=== PATIENT | male | born 1990 | race Caucasian/White ===

== ENCOUNTER 2020-12-25 10:06 | Outpatient (REF) | payer SELFPAY ==
[2020-12-25 14:34] LABS: HDL Cholesterol 39 mg/dL (40-60)
== END 2020-12-25 10:07 | disposition home or self-care (01) ==
LOC: NCHCN 10:06
PROVIDERS: PCP Nurse Practitioner Family; Visit Provider Family Medicine
DX: Z82.49 Family history of ischemic heart disease and other diseases of the circulatory system (principal)
CPT/HCPCS: 83718

== ENCOUNTER 2020-12-29 09:24 | Outpatient (REF) | payer SELFPAY ==
[2020-12-29 15:09] LABS: Calculated LDL 182 mg/dL (<100); Cholesterol 250 mg/dL (<200); HDL Cholesterol 40 mg/dL (40-60); Triglyceride 143 mg/dL (<150)
== END 2020-12-29 09:25 | disposition home or self-care (01) ==
LOC: NCHCN 09:24
PROVIDERS: PCP Nurse Practitioner Family; Visit Provider Family Medicine
DX: Z00.00 Encounter for general adult medical examination without abnormal findings (principal)
CPT/HCPCS: 80061

== ENCOUNTER 2024-03-11 06:52 | Emergency (ER) | payer BC, SELFPAY ==
[2024-03-11] VITALS (22 sets, daily range): BP systolic 119–147; BP diastolic 76–104; PULSE 51–74; RESP 9–23; TEMP 36.3; O2SAT 96–100
--- NOTE | 2024-03-11 06:45 | RT.EKG_ITS ---
APPROVED REPORT Exam: Resting ECG Reason for Exam: Chest pain Patient Location: E HR:61 bpm ECG Measurements Heart Rate 61 AXIS NM 193 P 24 QRSd 102 QRS 33 QT 433 T 7 QTc 437 Conclusion Sinus rhythm...normal P axis, V-rate 60- 99 No STEMI
[2024-03-11 07:14] LABS: Abs Immature Grans 0.01 10^3/uL (0.0-0.06); Absolute Basophil Count 0.05 10^3/uL (0.0-0.2); Absolute Eosinophil Count 0.22 10^3/uL (0.0-0.7); Absolute Lymphocyte Count 1.95 10^3/uL (1.2-3.4); Absolute Monocyte Count 0.57 10^3/uL (0.1-0.8); Absolute Neutrophil Count 2.96 10^3/uL (1.2-6.7); Basophils % 0.9 %; Eosinophils % 3.8 %; HCT 44.5 % (40.0-50.0); HGB 14.7 g/dL (13.5-17.5); Immature Grans % 0.2 %; Lymphocytes % 33.9 %; MCH 28.5 pg (27.0-33.0); MCV 86 fL (80-95); MPV 10.4 fL (8.0-11.0); Monocytes % 9.9 %; Neutrophils % 51.3 %; Platelet Count 222 10^3/uL (130-400); RBC 5.15 10^6/uL (4.36-5.78); RDW 12.8 % (11.8-14.1); RDW-SD 39.9 fL; WBC 5.76 10^3/uL (4.4-10.8)
--- NOTE | 2024-03-11 07:28 | ED.GENADUL_ITS ---
Discharge Plan Disposition Patient Disposition: Home Discharge Details Clinical Impression: Chest pain, unspecified Primary Care Provider: Wayne Ramachandran ED Provider: Dmitry Marrero Home Meds and New Rx's Prescriptions: No Action No Known Home Meds Discharge Instructions Additional Instructions: You are seen in the emergency department for your chest pain. Your blood work and EKG showed no sign of heart attack. As we discussed if you pass out or if your pain becomes associated with shortness of breath please return to the emergency department. Otherwise please follow-up with your primary care provider. Discharge Data Discharge Date/Time-TO BE ENTERED AT DEPARTURE: 03/11/24 08:55 HPI General Date/Time Provider Initiated Documentation: 03/11/24 07:04 . HPI Narrative: MDM This is a quite well-appearing afebrile and not tachycardic 33-year-old male with hyperlipidemia and chest pain concerning for the possibility of ACS for which patient will undergo 2 troponin tests given recent onset symptoms. No pain out of proportion to suggest necrotizing soft tissue infection. No rash to chest to suggest zoster. No tearing quality to suggest aortic dissection. Equal breath sounds and no trauma so my suspicion is low for dissection. Not hypotensive nor dialysis patient making my suspicion low for tamponade. No fevers nor cough to suggest pneumonia. No history of recent emesis to suggest increased risk for esophageal rupture. I considered PE however the patient is PERC negative so I did not send a D-dimer. 03/12 Late charting due to patient care. No acute abnormalities on x-ray nor labs. I counseled patient on reassuring evaluation. We discussed that he should return to emergency department if he passed out or develop pain radiating to his jaw. He understood his return indications and was discharged with an apparent trial of expectant outpatient management. Chronic conditions affecting the care of the patient: Hyperlipidemia History obtained from an outside historian: N/A External record review: N/A Diagnostic interpretations performed by me: Per my independent interpretation chest x-ray shows: Per my independent interpretation EKG shows: Normal sinus rhythm at a rate of 61. Normal axis. Interventricular conduction delay. VT and QTc within normal limits. No ST segment abnormalities. T wave version lead III. No prior for comparison. No acute injury pattern. ]Medications: N/A Social determinants of health affecting disposition: N/A Management discussed with: N/A Treatment/interventions considered: N/A Response to therapies provided: Improved symptoms in the ED HPI The patient presents for evaluation of chest pain. He reports experiencing left-sided chest pain, which has shown some improvement but persists. The onset of the pain was this morning, characterized by a sharp, stabbing sensation that he rates as 5 on a scale of 10. The pain was severe enough to disrupt his sleep. Upon awakening, he experienced lightheadedness, which prompted him to seek medical attention. Currently, the pain has subsided to a dull ache, rated as 2 or 3 out of 10. He does not report any radiation of the pain. This is his first encounter with such a symptom. He recalls a previous episode of chest pain related to physical exertion or rib cage strain. He was in good health yesterday and has not experienced any recent fevers, coughs, or colds. The pain does not worsen when he lies down. He has no history of thrombosis in his legs or lungs. He is a non-smoker and occasionally consumes alcohol, with his last intake being a single beer the previous night. He does not have diabetes or hypertension. He has been managing his cholesterol levels through dietary modifications and regular exercise. Exam General: Well-appearing in no acute distress speaking in complete sentences. Head: Normocephalic, atraumatic. Eye: Extraocular eye movements intact. No conjunctival injection. No scleral icterus. Ear, nose, mouth, throat: Grossly normal inspection. Normal voice, handling secretions normally. Neck: Trachea midline. Cardiovascular: Well-perfused distal extremities. Regular rate and rhythm Respiratory: Nonlabored respiration. Clear lungs bilaterally Gastrointestinal: Nondistended abdomen. Musculoskeletal: No significant lower extremity pitting edema. Moving all 4 extremities spontaneously. Skin: Normal for age and race, grossly normal temperature and turgor. No acute rash. Neurologic: Alert and appropriate, no apparent acute deficits. Psychiatric: Mood and manner are appropriate. Grooming and personal hygiene are appropriate. Related Data Home Medications ?Medication ?Instructions ?Recorded ?Confirmed Unknown [No Known Home Meds] 05/30/16 03/11/24 Allergies Allergy/AdvReac Type Severity Reaction Status Date / Time No Known Allergies Allergy Unverified 03/11/24 07:03 General Stated Complaint: Chest Pain MANDI: 2 Course Vital Signs Vital signs: Vital Signs Temperature 36.3 C L 03/11/24 07:01 Pulse 71 03/11/24 07:01 Respiratory Rate 10 L 03/11/24 07:01 Blood Pressure 147/95 H 03/11/24 07:01 Pulse Oximetry 100 03/11/24 07:01 Temperature 36.3 C L 03/11/24 07:01 Temperature Source Tympanic 03/11/24 07:01 Pulse 71 03/11/24 07:01 Respiratory Rate 10 L 03/11/24 07:01 Blood Pressure 147/95 H 03/11/24 07:01 Blood Pressure Position Sitting 03/11/24 07:01 Pulse Oximetry 100 03/11/24 07:01 Oxygen Delivery Method Room Air 03/11/24 07:01 Oxygen Flow Rate 0 03/11/24 07:01 Pain Level 5 03/11/24 07:01 Lab/Test Results Lab/Test Results: Laboratory Tests Range/Units 03/11/24 07:06 WBC (4.4-10.8) 10^3/uL 5.76 RBC (4.36-5.78) 10^6/uL 5.15 Hgb (13.5-17.5) g/dL 14.7 Hct (40.0-50.0) % 44.5 MCV (80-95) fL 86 MCH (27.0-33.0) pg 28.5 MCHC (32.0-36.0) % 33.0 RDW (11.8-14.1) % 12.8 Plt Count (130-400) 10^3/uL 222 MPV (8.0-11.0) fL 10.4 Immature Gran % % 0.2 Neutrophils % % 51.3 Lymphocytes % % 33.9 Monocytes % % 9.9 Eosinophils % % 3.8 Basophils % % 0.9 Nucleated RBC % (0.0-0.3) % 0.0 Absolute Neutrophils (1.2-6.7) 10^3/uL 2.96 Absolute Lymphocytes (1.2-3.4) 10^3/uL 1.95 Absolute Monocytes (0.1-0.8) 10^3/uL 0.57 Absolute Eosinophils (0.0-0.7) 10^3/uL 0.22 Absolute Basophils (0.0-0.2) 10^3/uL 0.05 Medical Decision Making Quality:SDOH Health Related Social Needs: No Data to Display PFSH All Active Problems (Updated 03/11/24 @ 07:33 by Dmitry Marrero MD) Chest pain, unspecified (Acute) Social History Smoking/Tobacco Use Status: Never Smoking risk assessment performed?: Yes Alcohol Intake: current Alcohol Intake frequency: holidays/special occasions only Alcohol type: beer Drug use: Never Substance use type: does not use Do you feel safe at home: Yes Do you feel safe in your relationship?: Yes POCUS Exam (ED) Limited Cardiac Exam DATE OF EXAM: 04/03/24 TIME OF EXAM: 07:30 PROVIDER THAT PERFORMED THE STUDY: Dmitry Marrero IS THIS A REPEAT EXAM DURING THIS ENCOUNTER: no REASON FOR EXAM: Chest pain VISUALIZED STRUCTURES: Four Chambers, Left ventricle and LVOT VIEW OBTAINED: Apical 4-Chamber, Parasternal long-axis and Subxiphoid PERTINENT FINDINGS/IMPRESSION: No pericardial effusion and No RV dilation DIFFERENTIAL DIAGNOSES: Aortic outflow track less than 4 cm, good squeeze, RV less than LV, no significant pericardial effusion. Exam complete
[2024-03-11 07:31] LABS: ALT 69 U/L (16-63); AST 34 U/L (15-37); Alkaline Phosphatase 92 U/L (46-116); Anion Gap 5.5 mmol/L (3-11); BUN 10 mg/dL (7-18); Bilirubin, Total 0.48 mg/dL (0.2-1.0); CO2 31.5 mmol/L (21.0-32.0); CREATININE 0.9 mg/dL (0.70-1.30); Chloride 103 mmol/L (98-107); Estimated GFR 115.65 (mL/min/1.73m2); Glucose 83 mg/dL (74-106); Lipase 26 U/L (<78); Potassium 3.6 mmol/L (3.5-5.1); Sodium 140 mmol/L (136-145); Total Protein 7.6 g/dL (6.4-8.2); Troponin I 9 ng/L (<or=76)
[2024-03-11 07:35] LABS: Calcium 9.1 mg/dL (8.5-10.1)
--- NOTE | 2024-03-11 07:55 | DI.RAD_ITS ---
Exam(s) XR CHEST 2V PA LATERAL EXAM: XR CHEST 2V PA LATERAL CLINICAL HISTORY: Chest pain TECHNIQUE: 2D digital imaging was performed. Two views. COMPARISON: No exams were available for comparison FINDINGS: HEART: Normal size. Aorta: Not dilated. PULMONARY VASCULATURE: Normal. MEDIASTINUM: Unremarkable. LUNGS: Clear. PLEURAL SPACE: No pleural effusion or pneumothorax. BONE:Unremarkable for age. SOFT TISSUES: Unremarkable. IMPRESSION: No acute abnormality. DATA REPOSITORY: RADIATION DOSE DELIVERED:
--- NOTE | 2024-03-11 08:11 | DI.VRAD_ITS ---
PROCEDURE INFORMATION: Exam: XR Chest Exam date and time: 03/11/2024 7:54 AM Age: 33 years old Clinical indication: On breathing; Patient HX: Chest pain TECHNIQUE: Imaging protocol: Radiologic exam of the chest. Views: 2 views. COMPARISON: No relevant prior studies available. FINDINGS: Lungs: Unremarkable. No consolidation. Pleural spaces: Unremarkable. No pleural effusion. No pneumothorax. Heart/Mediastinum: Unremarkable. No cardiomegaly. Bones/joints: Unremarkable. IMPRESSION: No acute findings. Dictated and Authenticated by: Blair Truong MD. Ordering:BEULAH Andres MD
[2024-03-11 08:26] LABS: Troponin I 9 ng/L (<or=76)
== END 2024-03-11 08:55 | disposition home or self-care (01) ==
PROVIDERS: Emergency Provider Emergency Medicine; PCP Family Medicine
DX: R07.9 Chest pain, unspecified (principal); E78.5 Hyperlipidemia, unspecified; R51.9 Headache, unspecified
CPT/HCPCS: 36415; 80053; 83690; 93005; 93308; 99284; 71046; 84484; 85025; 93010; 99283

== ENCOUNTER 2024-04-08 21:10 | Outpatient (REF) | payer BC, SELFPAY ==
[2024-04-08 22:12] LABS: LDL CHOLESTEROL 163 mg/dL (<100)
[2024-04-09 18:51] LABS: HIV-1/2 Ag & Ab Screen Negative (Negative)
[2024-04-09 19:30] LABS: Hepatitis C Ab w Rflx HCV PCR Negative (Negative)
== END 2024-04-08 21:11 | disposition home or self-care (01) ==
LOC: NCHCN 21:10
PROVIDERS: PCP Family Medicine; Visit Provider Family Medicine
DX: Z00.00 Encounter for general adult medical examination without abnormal findings (principal)
CPT/HCPCS: 83721; 86803; 87389